=== PATIENT | female | born 1980 | race Caucasian/White ===

== ENCOUNTER → 2018-03-22 | Outpatient (CLI) | payer MEDICAID ==
--- NOTE | 2018-03-22 15:56 | RADIOLOGY REPORT (SQ) ---
EXAM DESCRIPTION: FOOT RIGHT COMPLETE COMPLETED DATE/TIME: 03/22/2018 3:29 pm REASON FOR STUDY: RIGHT FOOT PAIN COMPARISON: None. NUMBER OF VIEWS: Three views. TECHNIQUE: AP, lateral and oblique radiographic images acquired of the right foot. LIMITATIONS: None. FINDINGS: MINERALIZATION: Normal. BONES: No acute fracture or dislocation. No worrisome bone lesions. JOINTS: No effusions. SOFT TISSUES: No soft tissue swelling. No foreign body. OTHER: No other significant finding. IMPRESSION: NEGATIVE STUDY OF THE RIGHT FOOT. NO RADIOGRAPHIC EVIDENCE OF ACUTE INJURY. TECHNICAL DOCUMENTATION: JOB ID: [id number] [employer]- All Rights Reserved Reading location - IP/workstation name: [email or web address]
== END ==
LOC: OD 15:19
PROVIDERS: ATTEND Nurse Practitioner Family
DX: M79.641 Pain in right hand (principal)

== ENCOUNTER 2018-12-27 12:10 | Emergency (ER) | payer MEDICAID ==
--- NOTE | 2018-12-27 13:01 | ER Document Report ---
ED Medical Screen (RME) - General Chief Complaint: Toe Injury Stated Complaint: TOE INJURY Time Seen by Provider: 12/27/18 12:57 Primary Care Provider: EUNICE POTTER FNP-C [Primary Care Provider] - Follow up as needed Mode of Arrival: Ambulatory Information source: Patient Notes: Patient presents to the emergency department with right toe injury. She reports she slipped on a tennis ball and hit her toe against a dresser. The finger the toenails lifted up now still bleeding. Unsure of last tetanus. Took Tylenol last night for the pain. I have greeted and performed a rapid initial assessment of this patient. A comprehensive ED assessment and evaluation of the patient, analysis of test results and completion of the medical decision making process will be conducted by additional ED providers. Dictation of this chart was performed using voice recognition software; therefore, there may be some unintended grammatical errors. TRAVEL OUTSIDE OF THE [place] IN LAST 30 DAYS: No - Related Data Allergies/Adverse Reactions: No Known Allergies Allergy (Unverified 12/27/18 12:19) Past Medical History - Social History Chew tobacco use (# tins/day): No Frequency of alcohol use: Occasional Drug Abuse: None - Past Medical History Cardiac Medical History: Reports: Hx Hypertension Neurological Medical History: Reports: Hx Migraine Renal/ Medical History: Denies: Hx Peritoneal Dialysis Past Surgical History: Reports: Hx Nose Surgery - x2, Hx Orthopedic Surgery - L shoulder, Hx Tubal Ligation Physical Exam - Vital signs Vitals: Temp Pulse Resp BP Pulse Ox 98.8 F 92 16 132/86 H 98 12/27/18 12:41 12/27/18 12:41 12/27/18 12:41 12/27/18 12:41 12/27/18 12:41 Course - Vital Signs Vital signs: Temp Pulse Resp BP Pulse Ox 98.8 F 92 16 132/86 H 98 12/27/18 12:41 12/27/18 12:41 12/27/18 12:41 12/27/18 12:41 12/27/18 12:41 Doctor's Discharge - Discharge Referrals: EUNICE POTTER FNP-C [Primary Care Provider] - Follow up as needed
--- NOTE | 2018-12-27 13:44 | RADIOLOGY REPORT (SQ) ---
EXAM DESCRIPTION: TOE RIGHT COMPLETED DATE/TIME: 12/27/2018 1:23 pm REASON FOR STUDY: pain toenail lifted up COMPARISON: None. NUMBER OF VIEWS: Three views. TECHNIQUE: AP, lateral, and oblique images acquired of the right first toe. LIMITATIONS: None. FINDINGS: MINERALIZATION: Normal. BONES: No acute fracture or dislocation. No worrisome bone lesions. JOINTS: No effusions. SOFT TISSUES: No soft tissue swelling. No foreign body. OTHER: No other significant finding. IMPRESSION: NEGATIVE STUDY OF THE RIGHT TOE. NO RADIOGRAPHIC EVIDENCE OF ACUTE INJURY. COMMENT: SITE OF TRAUMA/COMPLAINT MARKED/STAMP COMPLETED: Yes TECHNICAL DOCUMENTATION: JOB ID: [id number] [employer]- All Rights Reserved Reading location - IP/workstation name: [email or web address]
--- NOTE | 2018-12-27 16:02 | ER Document Report ---
ED General - General Chief Complaint: Toe Injury Stated Complaint: TOE INJURY Time Seen by Provider: 12/27/18 12:57 Primary Care Provider: EUNICE POTTER FNP-C [NURSE PRACTITIONER] - Follow up as needed Mode of Arrival: Ambulatory Information source: Patient TRAVEL OUTSIDE OF THE [place] IN LAST 30 DAYS: No - HPI Patient complains to provider of: Right great toe injury Onset: This morning Onset/Duration: Sudden Quality of pain: Sharp Severity: Moderate Pain Level: 2 Associated symptoms: None Exacerbated by: Movement, Walking Relieved by: Denies Similar symptoms previously: No Recently seen / treated by doctor: No Notes: 38-year-old female here with right great toe injury. She stepped on tennis ball and rolled her foot into the edge of a dresser. Her toenail was bent backwards and there was copious amount of bleeding. - Related Data Allergies/Adverse Reactions: No Known Allergies Allergy (Unverified 12/27/18 12:19) Past Medical History - General Information source: Patient - Social History Smoking Status: Current Every Day Smoker Chew tobacco use (# tins/day): No Frequency of alcohol use: Occasional Drug Abuse: None Family History: Reviewed & Not Pertinent Patient has suicidal ideation: No Patient has homicidal ideation: No - Past Medical History Cardiac Medical History: Reports: Hx Hypertension Neurological Medical History: Reports: Hx Migraine Renal/ Medical History: Denies: Hx Peritoneal Dialysis Past Surgical History: Reports: Hx Nose Surgery - x2, Hx Orthopedic Surgery - L shoulder, Hx Tubal Ligation Review of Systems - Review of Systems Notes: Constitutional: No fevers. No chills. EENT: No eye redness. No eye pain. No ear pain. No sore throat. Cardiovascular: No chest pain. No palpitations. Respiratory: No cough. No shortness of breath. No respiratory distress. Gastrointestinal: No abdominal pain. No nausea, vomiting, or diarrhea. Genitourinary: Atraumatic. No lesions. No pain. No discharge. Musculoskeletal: Right great toe/toenail injury Skin: No rash or lesions. Lymphatic: No swollen lymph nodes. Neurologic: No headache. No syncope. Psychiatric: No suicidal or homicidal ideation. Physical Exam - Vital signs Vitals: Temp Pulse Resp BP Pulse Ox 98.8 F 92 16 132/86 H 98 12/27/18 12:41 12/27/18 12:41 12/27/18 12:41 12/27/18 12:41 12/27/18 12:41 - Notes Notes: General: Well-developed, well-nourished. In no acute distress. Non-toxic appearing. Cardiac: Well-perfused. Regular rate and rhythm. No murmurs, rubs, or gallops. Pulmonary: No respiratory distress. No cyanosis. Bilateral lung fiels are clear to auscultation. Abdominal: Non-distended. Non-rigid. Bowels sounds are present in all four quadrants. No guarding or rebound. HEENT: Head is atraumatic. Conjunctivae not reddened. No tearing. PERRL. EOMI. Orbits atraumatic. No periorbital swelling or erythema. Oropharynx is without erythema, swelling, or exudates. Neck: Supple. No adenopathy. No meningismus. Dermatologic: Warm with good turgor. No rash. Atraumatic. Chest: Atraumatic. No chest wall tenderness to palpation. Musculoskeletal: The right great toenail appears lifted off of the nailbed. Evidence of subacute bleeding. Some dried blood underneath the nail. Genitourinary: Examination deferred Neurologic: No gross neurologic deficits. Psychiatric: Normal mood. Course - Re-evaluation Re-evalutation: 12/27/18 16:01 Digital block applied so that we can more closely examined the toe. - Vital Signs Vital signs: Temp Pulse Resp BP Pulse Ox 98.8 F 92 16 132/86 H 98 12/27/18 12:41 12/27/18 12:41 12/27/18 12:41 12/27/18 12:41 12/27/18 12:41 Procedures - Additional Procedures digital block right great toe Time performed: 16:19 Notes: 12/27/18 16:19 Alcohol prep pad to prep the base of the toe. Digital block accomplished using placement of equal parts plain lidocaine and half percent Marcaine to the superior and inferior corners of the toe. Complete anesthesia was achieved. The toenail was lifted freely and was not attached at all to the nailbed but remains attached under the cuticle. No nailbed trauma/laceration present. ED electronic service technician to lift the nail and clean under the nail and apply Neosporin to the lateral edges of the nailbed and then place a bulky dressing. Patient will go home on prophylaxis antibiotics and naproxen. Discharge - Discharge Clinical Impression: Toe injury Qualifiers: Encounter type: initial encounter Laterality: right Qualified Code(s): S99.921A - Unspecified injury of right foot, initial encounter Nail avulsion of toe Qualifiers: Encounter type: initial encounter Qualified Code(s): S91.209A - Unspecified open wound of unspecified toe(s) with damage to nail, initial encounter Condition: Good Disposition: HOME, SELF-CARE Instructions: Avulsed Nail ([facility]) Additional Instructions: The numbing medication given to you here today will last anywhere from 6 to 8 hours. Keep the toe clean. You may apply Neosporin ointment to the edges as needed. Naproxen sodium every 12 hours as needed for throbbing pain. The nail is probably not viable and will eventually fall off on its own. In the meantime, we will leave it on to protect the nailbed from any infection or injury. If you start to develop any signs or symptoms of infection despite taking the oral antibiotics, you may return to the emergency department or see your doctor. Prescriptions: Cephalexin Monohydrate [Keflex 500 mg Capsule] 500 mg PO Q6H 5 Days #20 capsule Naproxen 500 mg PO BID 5 Days #10 tablet Referrals: EUNICE POTTER FNP-C [NURSE PRACTITIONER] - 12/29/18
[2018-12-27 16:45] VITALS: BP 120/79
== END 2018-12-27 16:33 | disposition home or self-care (01) ==
LOC: ER 12:10
PROC: 3E0T3BZ Introduction of Anesthetic Agent into Peripheral Nerves and Plexi, Percutaneous Approach (ICD-10-PCS; principal; 2018-12-27)
DX: S99.921A Unspecified injury of right foot, initial encounter (principal); W22.03XA Walked into furniture, initial encounter; F17.200 Nicotine dependence, unspecified, uncomplicated; I10 Essential (primary) hypertension
CPT/HCPCS: 99283

== ENCOUNTER → 2019-07-03 | Outpatient (CLI) | payer MEDICAID ==
--- NOTE | 2019-07-03 13:48 | RADIOLOGY REPORT (SQ) ---
EXAM DESCRIPTION: CHEST PA/LATERAL COMPLETED DATE/TIME: 07/03/2019 1:40 pm REASON FOR STUDY: COUGH COMPARISON: None. EXAM PARAMETERS: NUMBER OF VIEWS: two views TECHNIQUE: Digital Frontal and Lateral radiographic views of the chest acquired. RADIATION DOSE: NA LIMITATIONS: none FINDINGS: LUNGS AND PLEURA: No opacities, masses or pneumothorax. No pleural effusion. MEDIASTINUM AND HILAR STRUCTURES: No masses or contour abnormalities. HEART AND VASCULAR STRUCTURES: Heart normal size. No evidence for failure. BONES: No acute findings. HARDWARE: None in the chest. OTHER: No other significant finding. IMPRESSION: No focal consolidation or other evidence of acute intrathoracic process. TECHNICAL DOCUMENTATION: JOB ID: [id number] [employer]- All Rights Reserved Reading location - IP/workstation name: [email or web address]
== END ==
LOC: OD 13:28
PROVIDERS: ATTEND Nurse Practitioner Family
DX: R05 Cough (principal)
CPT/HCPCS: 71046